=== PATIENT | female | born 1965 | race Caucasian/White ===

== ENCOUNTER 2019-08-29 21:20 | Emergency (ER) | payer OTHER ==
[~2019-08-29] VITALS: Ht 172.7 cm; Wt 88.5 kg
[2019-08-29 21:46] VITALS: BP_SYST 166
--- NOTE | 2019-08-29 21:52 | NUR ---
Patient triaged and placed in waiting room. VSS and patient appears in no acute distress at this time. Accompanied by girlfriend, awaiting available bed, and MD notified of need for MSE.
[2019-08-29] MEDS ORDERED: IPRATROPIUM/ALBUTEROL SULFATE 3 ML AMPUL.NEB (DUONEB) ONE (22:13)
[2019-08-29] MEDS ORDERED: IPRATROPIUM/ALBUTEROL SULFATE 3 ML AMPUL.NEB (DUONEB) INH ONE (22:45)
--- NOTE | 2019-08-29 23:30 | NUR ---
Patient to ER bed 6 to gown for evaluation. Side rails up.
--- NOTE | 2019-08-29 23:45 | NUR ---
patient BIB family member for a cough x 1 year. patient has a chronic nonproductive cough. patient is a 17 year smoker. patient denies taking anything for cough at this time. patient has wheezing bilateral throughout all lung [place]. no other complaint or injury at this time.
[2019-08-29 23:48] LABS: BASOPHILS # (AUTO) 0.1 K/uL (0.0-0.2); EOSINOPHILS # (AUTO) 1.5 K/uL (0.0-0.4); EOSINOPHILS % (AUTO) 14.9 % (0.0-4.0); HEMATOCRIT 42.4 % (36-48); HEMOGLOBIN 14.4 g/dL (12.0-16.0); LYMPHOCYTES # (AUTO) 2.6 K/uL (1.0-5.5); LYMPHOCYTES % (AUTO) 26.6 % (20.5-51.5); MEAN CORPUSCULAR HEMOGLOBIN 31 pg (27-31); MEAN CORPUSCULAR HGB CONC 34 % (32-36); MEAN CORPUSCULAR VOLUME 91 fL (79.0-98.0); MONOCYTES # (AUTO) 0.6 K/uL (0.0-1.0); MONOCYTES % (AUTO) 6.1 % (1.7-9.3); NEUTROPHILS % (AUTO) 51.4 % (40.0-70.0); PLATELET COUNT (AUTO) 299 K/uL (130-430); RED BLOOD CELL COUNT(AUTO) 4.64 MIL/uL (4.2-6.2); RED CELL DISTRIBUTION WIDTH 13.3 % (9.0-15.0); WHITE BLOOD COUNT (AUTO) 9.8 K/uL (4.8-10.8)
--- NOTE | 2019-08-30 | NUR ---
RT at bedside
[2019-08-30 00:10] LABS: PROTHROMBIN TIME 9.7 SECS (9.5-12.5)
[2019-08-30 00:11] LABS: CALCIUM 9.7 mg/dL (8.4-11.0); CREATININE 0.68 mg/dL (0.55-1.30)
[2019-08-30 00:24] LABS: TOTAL BILIRUBIN 0.4 mg/dL (0.0-1.0)
[2019-08-30] MEDS ORDERED: methylPREDNISolone SOD SUCC/PF 62.5 MG/ML VIAL IVP ONE (00:30)
[2019-08-30] MEDS ORDERED: AZITHROMYCIN 250 MG TABLET PO ONE (01:15)
--- NOTE | 2019-08-30 01:20 | NUR ---
ER at bedside examining patient.
[2019-08-30] MEDS ORDERED: methylPREDNISolone SOD SUCC/PF 62.5 MG/ML VIAL IM ONE (01:30)
[2019-08-30] MEDS ORDERED: IPRATROPIUM/ALBUTEROL SULFATE 3 ML AMPUL.NEB (DUONEB) INH ONE (02:00)
--- NOTE | 2019-08-30 02:30 | NUR ---
RT at bedside.
[2019-08-30 03:58] VITALS: BP_SYST 136
--- NOTE | 2019-08-30 03:58 | NUR ---
Patient given written and verbal discharge instructions and verbalizes understanding. ER MD Dr. Borrero discussed with patient the results and treatment provided. Patient in stable condition. ID arm band removed. Rx of predisone, zithromax and cherratussin given. Patient educated on pain management and to follow up with PMD. Pain Scale 0/10. Opportunity for questions provided and answered. Medication side effect fact sheet provided.
== END 2019-08-30 03:58 | disposition home or self-care (01) ==
LOC: SED 21:20
DX: J45.901 Unspecified asthma with (acute) exacerbation (principal); Z87.891 Personal history of nicotine dependence
CPT/HCPCS: 36415; 71045; 82550; 80053; 83880; 84484; 85025; 85379; 85610; 93005; 94640; 96372; 99284; J2930; J7620 ×2; Q0144